=== PATIENT | male | born 1995 | race African-American/Black ===

== ENCOUNTER 2018-09-05 05:24 | Emergency (ER) | payer BC ==
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
[2018-09-05 07:20] VITALS: BP 129/74
== END 2018-09-05 07:57 | disposition home or self-care (01) ==
LOC: ED 05:24
DX: S09.90XA Unspecified injury of head, initial encounter (principal); S01.112A Laceration without foreign body of left eyelid and periocular area, initial encounter; Y04.2XXA Assault by strike against or bumped into by another person, initial encounter; Y92.9 Unspecified place or not applicable; H11.32 Conjunctival hemorrhage, left eye; Z88.0 Allergy status to penicillin
CPT/HCPCS: 70450; 70486; 99281

== ENCOUNTER 2019-05-14 00:34 | Emergency (ER) | payer BC ==
[2019-05-14] MEDS ORDERED: Morphine 10 MG/ML VIAL (1 ml) IV ONE (01:05)
[2019-05-14] MEDS ORDERED: NS 0.9% 1000 ML** 2,000 ML IV ONE (01:05)
[2019-05-14] MEDS ORDERED: Ondansetron INJ* 2 MG/ML VIAL IV ONE (01:05)
--- NOTE | 2019-05-14 01:21 | ED ---
Abdominal Pain/Male - HPI Summary HPI Summary: Patient is a 24 y/o M presenting to [facility] with chief complaint of intermittent RLQ pain. Episodes of pain have been occurring for the past three days, with more frequency overall in recent days. He notes that the pain waxes and wanes in intensity when he has these episodes of pain. Pain is worse in the morning. He characterizes the pain as a "twisting" sensation. No radiation of pain is noted. Currently, he states that he has minimal pain. Some nausea is endorsed. He denies CP, SOB, vomiting, urinary Sx, and changes in appetite. PMHx is denied. PSHx of wisdom teeth removal is noted. 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 Home medications and allergies are reviewed. - History of Current Complaint Chief Complaint: EDAbdPain Stated Complaint: ABD PAIN PER PT Time Seen by Provider: 05/14/19 00:53 Hx Obtained From: Patient Onset/Duration: Lasting Days Timing: Intermittent, Lasting Days Severity Currently: Mild Pain Intensity: 0 Pain Scale Used: 0-10 Numeric Location: Discrete At: RLQ Radiates: No Character: Other: - twisting Associated Signs And Symptoms: Positive: Nausea, Other - negative - SOB. Negative: Chest Pain, Urinary Symptoms, Decreased Appetite, Vomiting - Allergies/Home Medications Allergies/Adverse Reactions: Allergies Allergy/AdvReac Type Severity Reaction Status Date / Time amoxicillin Allergy Rash Verified 05/14/19 01:24 Penicillins Allergy Rash Verified 05/14/19 01:24 Home Medications: Home Medications Fluticasone NASAL SPRAY 50MCG* 1 spray INH DAILY 05/14/19 [History Confirmed ] PMH/Surg Hx/FS Hx/Imm Hx Sensory History: Denies: Hx Legally Blind, Hx Deafness Opthamlomology History: Denies: Hx Legally Blind EENT History: Denies: Hx Deafness - Surgical History Surgery Procedure, Year, and Place: wisdom teeth removal Infectious Disease History: No Infectious Disease History: Denies: Traveled Outside the [place] in Last 30 Days - Family History Known Family History: Negative: Diabetes - Social History Alcohol Use: None Substance Use Type: Reports: None Smoking Status (MU): Never Smoked Tobacco Review of Systems Negative: Chest Pain Negative: Shortness Of Breath Gastrointestinal: Other - negative - changes in appetite Positive: Abdominal Pain, Nausea. Negative: Vomiting Positive: no symptoms reported - no urinary Sx All Other Systems Reviewed And Are Negative: Yes Physical Exam - Summary Physical Exam Summary: Appearance: Well-appearing, Well-nourished, lying in bed comfortably Skin: Warm, dry, no obvious rash Eyes: sclera anicteric, no conjunctival pallor ENT: mucous membranes moist, pharynx appears normal Neck: Supple, nontender Respiratory: Clear to auscultation, no signs of respiratory distress Cardiovascular: Normal S1, S2. No murmurs. Normal distal pulses in tibial and radial bilaterally. Abdomen: Soft, nontender, no RLQ tenderness, normal active bowel sounds present Musculoskeletal: Normal, Strength/ROM Intact Neurological: A&Ox3, awake and alert, mentation is normal, speech is fluent and appropriate Psychiatric: affect is normal, does not appear anxious or depressed Triage Information Reviewed: Yes Vital Signs On Initial Exam: Initial Vitals Temp Pulse Resp BP Pulse Ox 98.1 F 73 18 122/75 99 05/14/19 00:39 05/14/19 00:39 05/14/19 00:39 05/14/19 00:39 05/14/19 00:39 Vital Signs Reviewed: Yes Procedures - Sedation Patient Received Moderate/Deep Sedation with Procedure: No Diagnostics - Vital Signs Vital Signs Temp Pulse Resp BP Pulse Ox 05/14/19 00:39 98.1 F 73 18 122/75 99 - Laboratory Result Diagrams: 05/14/19 01:17 05/14/19 01:17 Lab Statement: Any lab studies that have been ordered have been reviewed, and results considered in the medical decision making process. Re-Evaluation - Re-Evaluation First Eval Re-Evaluation Time: 02:18 Comment: Results of workup were discussed with the patient. Patient was discharged to home and will follow up with PCP. He is agreeable with this plan. Abdominal Pain Male Course/Dx - Course Course Of Treatment: Patient is a 24 y/o M presenting to [facility] with chief complaint of intermittent RLQ pain. Episodes of pain have been occurring for the past three days, with more frequency overall in recent days. He notes that the pain waxes and wanes in intensity when he has these episodes of pain. Pain is worse in the morning. He characterizes the pain as a "twisting" sensation. No radiation of pain is noted. Currently, he states that he has minimal pain. Some nausea and constipation is endorsed. 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 He denies CP, SOB, vomiting, urinary Sx, and changes in appetite. PMHx is denied. On physical exam, no RLQ tederness is noted. Exam is unremarkable. Patient declined IV access and medications. Bloodwork and UA were obtained. Bloodwork was WNL with exception of 143 platelets, creatinine 1.2. UA was negative. Patient was discharged to home and will follow up with PCP. He is agreeable with this plan. - Diagnoses Provider Diagnoses: Acute abdominal pain Discharge ED - Sign-Out/Discharge Documenting (check all that apply): Patient Departure - discharge - Discharge Plan Condition: Stable Disposition: HOME Patient Education Materials: Acute Abdominal Pain (ED) Referrals: Rosario Cooper NP [Primary Care Provider] - - Billing Disposition and Condition Condition: STABLE Disposition: Home - Attestation Statements Document Initiated by Noreen: Yes Documenting Scribe: ARYAN BARNETT Provider For Whom Noreen is Documenting (Include Credential): JUNIOR BERG MD Scribe Attestation: ARYAN Maloney, scribed for JUNIOR BERG MD on 05/14/19 at 1850. Scribe Documentation Reviewed: Yes Provider Attestation: The documentation as recorded by the ARYAN cervantes accurately reflects the service I personally performed and the decisions made by , JUNIOR BERG MD Status of Scribe Document: Viewed
[2019-05-14 01:24] LABS: Hematocrit 45 % (42-52); Hemoglobin 14.9 g/dL (14.0-18.0); Mean Corpuscular HGB Conc 33 g/dL (31-36); Mean Corpuscular Hemoglobin 29 pg (27-31); Mean Corpuscular Volume 85 fL (80-94); Mean Platelet Volume 10.2 fL (7.4-10.4); Platelet Count 143 10^3/uL (150-450); Red Blood Count 5.24 10^6 /uL (4.18-5.48); Red Cell Distribution Width 15 % (10-15); White Blood Count 5.6 10^3/uL (3.5-10.8)
[2019-05-14 01:28] LABS: ABS Basophils 0.1 10^3/ul (0-0.2); ABS Eosinophils 0.2 10^3/ul (0-0.6); ABS Lymphocytes 2.3 10^3/ul (1.0-4.8); ABS Monocytes 0.6 10^3/ul (0-0.8); ABS Neutrophils 2.3 10^3/ul (1.5-7.7); Lymphocyte % 41.7 %; Nucleated Red Blood Cells % 0.2
[2019-05-14 01:41] LABS: Albumin 4.3 g/dL (3.2-5.2); Albumin/Globulin Ratio 1.3 (1-3); BUN/Creatinine Ratio 13.3 (8-20); C Reactive Protein 1.33 mg/L (<8.01); Calcium 9.9 mg/dL (8.6-10.3); EGFR Non-African American 74.4 (>60); Globulin 3.2 g/dL (2-4); Potassium 4.3 mmol/L (3.5-5.0); Total Bilirubin 0.3 mg/dL (0.2-1.0); Total Protein 7.5 g/dL (6.4-8.9)
[2019-05-14 01:49] LABS: Urine Appearance Clear; Urine Bilirubin Negative (Negative); Urine Blood Negative (Negative); Urine Color Yellow; Urine Glucose Negative (Negative); Urine Ketones Negative (Negative); Urine Nitrite Negative (Negative); Urine Protein Negative (Negative); Urine Specific Gravity 1.026 (1.010-1.030); Urine Urobilinogen Negative (Negative)
[2019-05-14 02:38] VITALS: BP 128/73
== END 2019-05-14 02:30 | disposition home or self-care (01) ==
LOC: ED 00:34
DX: R10.31 Right lower quadrant pain (principal); R11.0 Nausea; K59.00 Constipation, unspecified; Z88.0 Allergy status to penicillin
CPT/HCPCS: 36415; 80053; 81003; 83690; 85025; 86140; 99283; J2270; J2405

== ENCOUNTER 2019-07-17 00:59 | Emergency (ER) | payer BC ==
[2019-07-17] MEDS ORDERED: Ondansetron INJ* 2 MG/ML VIAL IV ONE (01:33)
[2019-07-17 02:00] LABS: Hematocrit 47 % (42-52); Mean Corpuscular HGB Conc 34 g/dL (31-36); Mean Corpuscular Hemoglobin 29 pg (27-31); Mean Corpuscular Volume 84 fL (80-94); Platelet Count 151 10^3/uL (150-450); Red Blood Count 5.55 10^6 /uL (4.18-5.48); Red Cell Distribution Width 15 % (10-15); White Blood Count 5.1 10^3/uL (3.5-10.8)
[2019-07-17 02:05] LABS: INR 1.15 (0.82-1.09)
[2019-07-17] MEDS ORDERED: NS 0.9% 1000 ML** 1,000 ML IV ONE (02:05)
[2019-07-17 02:17] LABS: Albumin 4.4 g/dL (3.2-5.2); Albumin/Globulin Ratio 1.3 (1-3); BUN/Creatinine Ratio 7.8 (8-20); C Reactive Protein 8.29 mg/L (<8.01); Calcium 9.4 mg/dL (8.6-10.3); EGFR African American 82.8 (>60); EGFR Non-African American 68.4 (>60); Globulin 3.3 g/dL (2-4); Potassium 3.6 mmol/L (3.5-5.0); Total Bilirubin 0.4 mg/dL (0.2-1.0); Total Protein 7.7 g/dL (6.4-8.9)
[2019-07-17 02:19] LABS: Urine Appearance Clear; Urine Bilirubin Negative (Negative); Urine Blood Negative (Negative); Urine Color Yellow; Urine Glucose Negative (Negative); Urine Ketones 1+ (Negative); Urine Nitrite Negative (Negative); Urine Protein 1+(30 mg/dL) (Negative); Urine Specific Gravity 1.028 (1.010-1.030); Urine Urobilinogen Negative (Negative)
--- NOTE | 2019-07-17 02:21 | ED ---
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 Pt has been experiencing yellow diarrhea, vomiting, nausea, decreased oral intake, cough, chills, and abdominal pain. Pt denies urinary symptoms and fever. 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 Pt is allergic to amoxicillin and penicillin. - History of Current Complaint Chief Complaint: EDNauseaVomitDiarrh Time Seen by Provider: 07/17/19 01:27 Stated Complaint: NAUSEA/VOMITING PER PT Hx Obtained From: Patient Onset/Duration: Still Present Current Severity: Moderate Pain Intensity: 5 Associated Signs and Symptoms: Positive: Nausea, Vomiting, Diarrhea - yellow, Chills, Abdominal Pain, Cough, Other: - positive - decreased oral intake; negative - urinary symptoms. Negative: Fever - Allergy/Home Medications Allergies/Adverse Reactions: Allergies Allergy/AdvReac Type Severity Reaction Status Date / Time amoxicillin Allergy Rash Verified 05/14/19 01:24 Penicillins Allergy Rash Verified 05/14/19 01:24 PMH/Surg Hx/FS Hx/Imm Hx Sensory History: Denies: Hx Legally Blind, Hx Deafness Opthamlomology History: Denies: Hx Legally Blind EENT History: Denies: Hx Deafness - Surgical History Surgery Procedure, Year, and Place: wisdom teeth removal Infectious Disease History: No Infectious Disease History: Denies: Traveled Outside the [place] in Last 30 Days - Family History Known Family History: Negative: Diabetes - Social History Alcohol Use: Occasionally Substance Use Type: Reports: Marijuana Substance Use Comment - Amount & Last Used: 1x month Smoking Status (MU): Never Smoked Tobacco - Additional Comments History Additional Comments: PMHx: Seasonal allergies PSHx: [place] tooth removal FHx: HTN BPH SHx: no smoking rare alcohol use rare marijuana use Review of Systems - ROS Summary Review of Systems Summary: Medications: Zyrtec, Flonase Positive: Chills. Negative: Fever Positive: Cough Positive: Abdominal Pain, Vomiting, Diarrhea - yellow, Nausea, Other - decreased oral intake Positive: no symptoms reported All Other Systems Reviewed And Are Negative: Yes Physical Exam - Summary Physical Exam Summary: General: Well-developed, Well-nourished (MALE/FEMALE). No acute distress. Not ill-appearing. HEENT: Normocephalic, Atraumatic. Eyes: Conjuctiva normal, PERRL. Oropharynx: Clear, mucous membranes dry, (-) exudates. Neck: Soft, FROM, (-) lymphadenopathy, (-) thyromegaly, (-) JVD. Cardiovascular: Normal sinus rhythm, (-) murmur. Lungs: Clear to auscultation bilaterally (-) wheezes, (-) rales, (-) rhonchi. Abdomen: Soft, non-tender, non-distended, (-) organomegaly, normal bowel sounds. Back: (-) CVA tenderness Extremities: No edema. Skin: Warm, dry, (-) rash. Neuro: Alert and oriented x3, no focal deficits. Psychiatric: Mood normal, affect normal. Triage Information Reviewed: Yes Vital Signs On Initial Exam: Initial Vitals Temp Pulse Resp BP Pulse Ox 98.9 F 89 20 142/81 97 07/17/19 01:06 07/17/19 01:06 07/17/19 01:06 07/17/19 01:06 07/17/19 01:06 Vital Signs Reviewed: Yes Procedures - Sedation Patient Received Moderate/Deep Sedation with Procedure: No Diagnostics - Vital Signs Vital Signs Temp Pulse Resp BP Pulse Ox 07/17/19 01:14 87 146/95 98 07/17/19 01:13 94 98 07/17/19 01:06 98.9 F 89 20 142/81 97 - Laboratory Lab Results: Lab Results 07/17/19 07/17/19 Range/Units 01:41 01:41 WBC 5.1 (3.5-10.8) 10^3/uL RBC 5.55 H (4.18-5.48) 10^6 /uL Hgb 16.0 (14.0-18.0) g/dL Hct 47 (42-52) % MCV 84 (80-94) fL MCH 29 (27-31) pg MCHC 34 (31-36) g/dL RDW 15 (10-15) % Plt Count 151 (150-450) 10^3/uL MPV 10.0 (7.4-10.4) fL Neut % (Auto) Pending Lymph % (Auto) Pending [place] % (Auto) Pending Eos % (Auto) Pending Baso % (Auto) Pending Absolute Neuts (auto) Pending Absolute Lymphs (auto) Pending Absolute Monos (auto) Pending Absolute Eos (auto) Pending Absolute Basos (auto) Pending Absolute Nucleated RBC Pending Nucleated RBC % Pending INR (Anticoag Therapy) 1.15 H (0.82-1.09) Result Diagrams: 07/17/19 01:41 07/17/19 01:41 Lab Statement: Any lab studies that have been ordered have been reviewed, and results considered in the medical decision making process. Re-Evaluation - Re-Evaluation First Eval Re-Evaluation Time: 04:04 Comment: Pt feels somewhat better and no longer has nausea or vomiting. Pt still has diarrhea. I have discussed results with the patient. Advised imodium, fluids, and rest. Discussed symptoms that warrant immediate return to ED. GIGU Course/Dx - Course Course Of Treatment: 24-year-old male presents from home by private vehicle with diarrhea. Patient states he started with diarrhea about 24 hours ago. Also had vomiting. He is suspicious that he has cryptosporidium. 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 His roommate has cryptosporidium. Pt was given Toradol, Zofran, IV fluids. Symptoms improved significantly. Patient discharged home. Advised plenty of clear fluids. Imodium as needed. Zofran given as needed. Follow up with PCP. Follow-up sooner for any worsening symptoms. - Diagnoses Provider Diagnoses: Diarrhea Discharge ED - Sign-Out/Discharge Documenting (check all that apply): Patient Departure - dc - Discharge Plan Condition: Stable Disposition: HOME Patient Education Materials: Acute Nausea and Vomiting (ED), Acute Diarrhea (ED ) Referrals: Allison Arias, MACHINE BENDER [Primary Care Provider] - Additional Instructions: Follow up with your primary care provider in 1-3 days. I advise imodium, fluids , and rest. If you experience new or worsening symptoms please return to the ER. - Billing Disposition and Condition Condition: STABLE Disposition: Home - Attestation Statements Document Initiated by Scribe: Yes Documenting Scribe: Alon Nash Provider For Whom Scribe is Documenting (Include Credential): Estela Humphries MD Scribe Attestation: Alon Maloney, scribed for Estela Humphries MD on 07/17/19 at 0450. Scribe Documentation Reviewed: Yes Provider Attestation: The documentation as recorded by the scribe, Alon Nash accurately reflects the service I personally performed and the decisions made by me, Estela Humphries MD Status of Scribe Document: Viewed
[2019-07-17 02:23] LABS: Urine Bacteria Absent (Absent); Urine Red Blood Cell Absent (Absent); Urine White Blood Cell Trace(0-5/hpf) (Absent)
[2019-07-17 02:42] LABS: ABS Eosinophils 0.1 10^3/ul (0-0.6); ABS Lymphocytes 0.7 10^3/ul (1.0-4.8); ABS Monocytes 0.4 10^3/ul (0-0.8); ABS Neutrophils 3.9 10^3/ul (1.5-7.7); Eosinophil % 2.3 %; Large Platelets Present; Lymphocyte % 12.9 %
[2019-07-17] MEDS ORDERED: O ndansetron ODT 4MG 5TAB PRPK 4 MG PAK PO ONE (04:07)
[2019-07-17 04:31] VITALS: BP 134/82
--- NOTE | 2019-07-21 16:14 | ED ---
Imaging and Labs Follow Up Follow Up Type: Labs/Cultures Labs/Culture Result: Stool culture is indeterminate for cryptosporidium. Culture being sent to [facility] for confirmatory testing. Patient Communication/Plan: Pending confirmatory testing. No change in treatment at this time. Provider Diagnoses: Diarrhea
== END 2019-07-17 04:30 | disposition home or self-care (01) ==
LOC: ED 00:59
DX: R19.7 Diarrhea, unspecified (principal); R11.2 Nausea with vomiting, unspecified; R05 Cough; R68.83 Chills (without fever); R10.9 Unspecified abdominal pain; Z88.0 Allergy status to penicillin
CPT/HCPCS: 36415; 80053; 81003; 81015; 83605; 83690; 85025; 85610; 86140; 87040; 87086; 87328; 87329; 87493; 96361; 96374; 99283; A9270-GY; J2405